=== PATIENT | female | born 1975 | race Hispanic/Latino ===

== ENCOUNTER → 2018-05-08 | Outpatient (CLI) | payer OTHER ==
[2018-05-08 09:39] LABS: BASOPHILS % (AUTO) 0.8 % (0.0-5.0); EOSINOPHILS % (AUTO) 1.5 % (0.0-8.0); HEMATOCRIT 36.2 % (36-48); LYMPHOCYTES % (AUTO) 27.2 % (21.0-51.0); MEAN CORPUSCULAR HEMOGLOBIN 25.5 pg (27.0-33.0); MEAN CORPUSCULAR HGB CONC 33.2 g/dL (32.0-36.0); MEAN CORPUSCULAR VOLUME 76.8 fL (79-99); MONOCYTES % (AUTO) 5.6 % (3.0-13.0); NEUTROPHILS % (AUTO) 64.9 % (40.0-77.0); NUCLEATED RED BLOOD CELLS 0.1 % (0.0-0.19); PLATELET COUNT (AUTO) 332 K/uL (130-400); RED BLOOD CELL COUNT(AUTO) 4.71 MIL/uL (4.00-5.50); RED CELL DISTRIBUTION WIDTH 15.3 % (11.0-15.5); WHITE BLOOD COUNT (AUTO) 10.7 K/uL (4.8-10.8)
[2018-05-08 09:46] LABS: HEMOGLOBIN A1C 5.7 % (4.0-6.0)
[2018-05-08 09:58] LABS: ALBUMIN 3.6 g/dL (3.5-5.0); BILIRUBIN,TOTAL 0.3 mg/dL (0.2-1.0); CREATININE 0.7 mg/dL (0.5-1.5); CRP QUANTITATIVE 19.7 mg/L (0.00-9.0); THYROID STIMULATING HORMONE 2.4 uIU/mL (0.36-3.74)
[2018-05-08 10:38] LABS: ERYTHROCYTE SEDIMENTATION RATE 35 MM/HR (0-20)
== END | disposition home or self-care (01) ==
LOC: RAH 08:23
PROVIDERS: ATTEND Internal Medicine
DX: Z12.31 Encounter for screening mammogram for malignant neoplasm of breast (principal); M54.14 Radiculopathy, thoracic region; R07.89 Other chest pain
CPT/HCPCS: 36415; 71046; 72072; 77067; 80053; 80061; 82306; 83036; 84443; 85025; 85651; 86140

== ENCOUNTER 2020-11-21 05:30 | Observation (INO) | payer SELFPAY ==
[2020-11-20 12:26] LABS: BASOPHILS % (AUTO) 0.3 % (0.0-5.0); EOSINOPHILS % (AUTO) 1.7 % (0.0-8.0); HEMATOCRIT 34.3 % (36-48); LYMPHOCYTES % (AUTO) 27.7 % (21.0-51.0); MEAN CORPUSCULAR HEMOGLOBIN 27.8 pg (27.0-33.0); MEAN CORPUSCULAR HGB CONC 32.7 g/dL (32.0-36.0); MEAN CORPUSCULAR VOLUME 85.1 fL (79-99); PLATELET COUNT (AUTO) 301 K/uL (130-400); RED BLOOD CELL COUNT(AUTO) 4.03 MIL/uL (4.00-5.50); RED CELL DISTRIBUTION WIDTH 14.5 % (11.0-15.5); WHITE BLOOD COUNT (AUTO) 6.6 K/uL (4.8-10.8)
[2020-11-20 13:40] VITALS: BP 131/64
[~2020-11-21] VITALS: Ht 160 cm; Wt 96.3 kg
[2020-11-21] VITALS (24 sets, daily range): BP systolic 124–184; BP diastolic 64–94
[~2020-11-21 05:30] MED LIST: ESCI20TA PO; FERR-82 PO
[2020-11-21] MEDS ORDERED: LACTATED RINGERS 1000ML 1,000 ML IV ONE (07:24)
[2020-11-21] MEDS ORDERED: MIDAZOLAM HCL 1 MG/ML 2ML VIAL ONE (08:35)
[2020-11-21] MEDS ORDERED: LIDOCAINE HCL MPF 1% 5ML VIAL ONE (08:36)
[2020-11-21] MEDS ORDERED: PROPOFOL 10 MG/ML 20ML VIAL IV ONE (08:36)
[2020-11-21] MEDS ORDERED: ROCURONIUM 10MG/1ML SYR 10 MG/ML ML ONE ×2 (08:37→09:56)
[2020-11-21] MEDS ORDERED: FENTANYL CITRATE PF 50 MCG/1 ML 2ML VIAL ONE (08:37)
[2020-11-21] MEDS: CEFAZOLIN SODIUM 1 GM VIAL IVP SCH ×2 (08:39→21:49)
[2020-11-21] MEDS ORDERED: GLYCOPYRROLATE 1 MG/5 ML SYRINGE ONE (09:21)
[2020-11-21] MEDS ORDERED: NEOSTIGMINE 5MG/5ML SYR IV ONE (10:08)
[2020-11-21] MEDS ORDERED: METOCLOPRAMIDE 10 MG/2 ML VIAL ONE (10:25)
[2020-11-21] MEDS ORDERED: ONDANSETRON HCL 4 MG/2 ML VIAL ONE (10:25)
[2020-11-21] MEDS ORDERED: MEPERIDINE-PF 25 MG/ML SYG ONE ×3 (10:26→10:53)
[2020-11-21] MEDS: DEXTROSE 5 %-0.45 % NACL 1,000 ML IV PRN ×2 (11:43→18:53)
[2020-11-21] MEDS ORDERED: ACETAMINOPHEN-CODEINE 300/30MG TAB PO PRN (11:45)
[2020-11-21] MEDS ORDERED: ONDANSETRON HCL 4 MG/2 ML VIAL IVP PRN (11:45)
[2020-11-21] MEDS ORDERED: PROMETHAZINE HCL 25 MG/ML 1ML AMPULE IM PRN (11:45)
[2020-11-21] MEDS ORDERED: IBUPROFEN 600 MG TABLET PO PRN (11:45)
[2020-11-21] MEDS ORDERED: BISACODYL 10 MG SUPP.RECT RC PRN (11:45)
[2020-11-21] MEDS ORDERED: SIMETHICONE 80 MG TAB.CHEW PO PRN (11:45)
[2020-11-21] MEDS ORDERED: DOCUSATE SODIUM 100 MG CAP PO PRN (11:45)
[2020-11-21] MEDS: PROMETHAZINE HCL 25 MG/ML 1ML AMPULE IM PRN ×3 (12:32→20:46)
[2020-11-21] MEDS: MEPERIDINE-PF 75 MG/ML SYG IM PRN ×3 (12:35→20:47)
[2020-11-22] MEDS: PROMETHAZINE HCL 25 MG/ML 1ML AMPULE IM PRN ×2 (00:39→05:38)
[2020-11-22] MEDS: MEPERIDINE-PF 75 MG/ML SYG IM PRN ×2 (00:40→05:39)
[2020-11-22] MEDS: DEXTROSE 5 %-0.45 % NACL 1,000 ML IV PRN (02:50)
[2020-11-22 03:00] VITALS: BP 138/66
[2020-11-22] MEDS ORDERED: ACETAMINOPHEN-CODEINE 300/30MG TAB PO PRN (07:00)
[2020-11-22] MEDS ORDERED: HYDROCODONE/ACETAMINOPHEN 5/325 MG TAB PO PRN (07:00)
[2020-11-22] MEDS ORDERED: IBUPROFEN 800 MG TAB PO PRN (07:00)
[2020-11-22] MEDS ORDERED: DOCUSATE SODIUM 100 MG CAP PO PRN (07:00)
[2020-11-22] MEDS ORDERED: BISACODYL 10 MG SUPP.RECT RC PRN (07:00)
[2020-11-22] MEDS ORDERED: SIMETHICONE 80 MG TAB.CHEW PO PRN (07:00)
[2020-11-22] MEDS: CEFAZOLIN SODIUM 1 GM VIAL IVP SCH (07:01)
[2020-11-22 07:03] LABS: HEMATOCRIT 32.5 % (36-48); MEAN CORPUSCULAR HEMOGLOBIN 26.8 pg (27.0-33.0); MEAN CORPUSCULAR HGB CONC 32.6 g/dL (32.0-36.0); MEAN CORPUSCULAR VOLUME 82.3 fL (79-99); RED BLOOD CELL COUNT(AUTO) 3.95 MIL/uL (4.00-5.50); RED CELL DISTRIBUTION WIDTH 14.1 % (11.0-15.5); WHITE BLOOD COUNT (AUTO) 13.7 K/uL (4.8-10.8)
[2020-11-22 07:20] VITALS: BP 143/81
[2020-11-22 11:23] VITALS: BP 143/78
== END 2020-11-22 12:25 | disposition home or self-care (01) ==
LOC: DAH 05:30 → WSH 05:31
PROVIDERS: ADMIT Obstetrics & Gynecology; ATTEND Obstetrics & Gynecology
DX: N92.1 Excessive and frequent menstruation with irregular cycle (principal); Z20.822 Contact with and (suspected) exposure to COVID-19; K46.9 Unspecified abdominal hernia without obstruction or gangrene; N85.2 Hypertrophy of uterus; D50.9 Iron deficiency anemia, unspecified; G43.909 Migraine, unspecified, not intractable, without status migrainosus; Z90.49 Acquired absence of other specified parts of digestive tract; Z98.51 Tubal ligation status; Z79.899 Other long term (current) drug therapy
CPT/HCPCS: 36415 ×2; 58263; 85025; 85027; 86850; 86900; 86901; 96361 ×3; 96372 ×2; 96374; A4215; A4216; A4221; A4222; A4223 ×2; A4351; A4510; A4600; A4606; A4649; A4663; A4930; A6260; C9803; G0378 ×28; J0690; J2175 ×8; J2250; J2405; J2550 ×5; J2704; J2710; J2765; J3010; J3490 ×2; J7120 ×2; U0003; 96360